=== PATIENT | female | born 1970 | race Caucasian/White ===

== ENCOUNTER → 2016-10-18 | Outpatient (CLI) | payer BC ==
[2016-10-18 17:10] LABS: CHLORIDE,CL 100 mmol/L (98-110); SODIUM,NA 137 mmol/L (136-146)
== END ==
LOC: MW.CHNEURO 16:25
PROVIDERS: ATTEND Psychiatry & Neurology Neuromuscular Medicine
DX: R11.2 Nausea with vomiting, unspecified (principal); R10.9 Unspecified abdominal pain
CPT/HCPCS: 36415; 80053; 82150; 83690; 85025

== ENCOUNTER 2018-04-08 10:11 | Day surgery (SDC) | payer BC ==
[~2018-04-08 10:11] MED LIST: Lactated Ringers 1,000 ML IV SCH; Sodium Chloride 0.9% 10 ML Syringe FLUSH PRN; Sodium Chloride 0.9% 2.5 ML Syringe FLUSH PRN
--- NOTE | 2018-04-08 11:29 | PCM.PREANE ---
Preanesthetic Assessment - Procedure Proposed Procedure: EGD and Colonoscopy - Anesthesia/Transfusion/Family Hx Anesthesia History: Prior Anesthesia Without Reaction Family History of Anesthesia Reaction: No Transfusion History: No Prior Transfusion(s) Intubation History: Unknown - Review of Systems General: Fatigue Pulmonary: No Symptoms Cardiovascular: Other (HTN) Gastrointestinal: No Symptoms Neurological: Headache (Tx with propranolol) Other: Reports: None - Physical Assessment NPO Status Date: 04/07/18 NPO Status Time: 22:00 Height: 5 ft 2 in Weight: 146 lb ASA Class: 2 Mental Status: Alert & Oriented x3 Airway Class: Mallampati = 1 Dentition: Reports: Normal Dentition Thyro-Mental Finger Breadths: 3 Mouth Opening Finger Breadths: 3 ROM/Head Extension: Limited/Partial Lungs: Clear to Auscultation, Normal Respiratory Effort Cardiovascular: Regular Rate, Regular Rhythm - Allergies Allergies/Adverse Reactions: Allergies Allergy/AdvReac Type Severity Reaction Status Date / Time aspirin Allergy Shortness Verified 04/01/18 13:32 of Breath - Blood Blood Available: No - Anesthesia Plan Pre-Op Medication Ordered: None - Acknowledgements Anesthesia Type Planned: MAC Pt an Appropriate Candidate for the Planned Anesthesia: Yes Alternatives and Risks of Anesthesia Discussed w Pt/Guardian: Yes Pt/Guardian Understands and Agrees with Anesthesia Plan: Yes PreAnesthesia Questionnaire HEENT History: Reports: None Cardiovascular History: Reports: Hypertension Genitourinary History: Reports: None Musculoskeletal History: Reports: Fracture Other Musculoskeletal History: hx of fx elbow and ankle Neurological History: Reports: Migraines, Seizure Other Neuro History: seizures as a child Endocrine/Metabolic History: Reports: Other (See Below) Other Endocrine/Metabolic History: hx thyroid nodule Hematologic History: Reports: Iron Deficiency Other Hematologic History: Fe deficiency anemia - Past Surgical History Head Surgeries/Procedures: Reports: None HEENT Surgical History: Reports: Tonsillectomy Female Surgical History: Reports: Tubal Ligation - SUBSTANCE USE Smoking Status *Q: Never Smoker Recreational Drug Use History: No - HOME MEDS Home Medications: Home Meds Divalproex Sodium 2 tab PO BEDTIME 04/01/18 [History] EPINEPHrine [Epipen] 1 injection SUBCUT ASDIRECTED PRN 04/01/18 [History] Ferrous Sulfate [Iron] 325 mg PO BID 04/01/18 [History] Losartan Potassium 100 mg PO DAILY 04/01/18 [History] Ondansetron [Ondansetron ODT] 8 mg SL ASDIRECTED PRN 04/01/18 [History] Propranolol HCl [Propranolol HCl ER] 120 mg PO DAILY 04/01/18 [History] Rizatriptan Benzoate [Rizatriptan] 10 mg PO ASDIRECTED PRN 04/01/18 [History] hydroCHLOROthiazide [Hydrochlorothiazide] 25 mg PO DAILY 04/01/18 [History] valACYclovir HCl [valACYclovir] 1 tab PO ASDIRECTED PRN 04/01/18 [History] Cyclobenzaprine HCl 0.5 - 1 tab PO ASDIRECTED PRN 04/02/18 [History] - CURRENT (IN HOUSE) MEDS Current Meds: Current Medications Lactated Ringer's (Ringers, Lactated) 1,000 mls @ 125 mls/hr IV ASDIRECTED QASIM Sodium Chloride (Saline Flush) 10 ml FLUSH ASDIRECTED PRN PRN Reason: Keep Vein Open Sodium Chloride (Saline Flush) 2.5 ml FLUSH ASDIRECTED PRN PRN Reason: Keep Vein Open Sodium Chloride (Saline Flush) 10 ml FLUSH ASDIRECTED PRN PRN Reason: Keep Vein Open Sodium Chloride (Saline Flush) 2.5 ml FLUSH ASDIRECTED PRN PRN Reason: Keep Vein Open
[2018-04-08] MEDS ORDERED: fentaNYL 100 MCG/2 ML SDV ONE (12:14)
[2018-04-08] MEDS ORDERED: Lidocaine 2% 5 ML SDV ONE (12:14)
[2018-04-08] MEDS ORDERED: Propofol 200 MG/20 ML SDV ONE (12:14)
[2018-04-08] MEDS ORDERED: Midazolam 1 MG/ML 2 ML SDV ONE (12:14)
--- NOTE | 2018-04-08 12:58 | PCM.OPNOTE ---
- General Post-Op/Procedure Note Date of Surgery/Procedure: 04/08/18 Operative Procedure(s): Diagnostic EGD and colonoscopy Findings: Gastric ulcer in antrum along greater curvature Pre Op Diagnosis: Iron deficiency anemia Post-Op Diagnosis: gastric ulcer, normal colon Anesthesia Technique: MAC Primary Surgeon: Makayla Costa Condition: Good
--- NOTE | 2018-04-08 13:03 | PCM.POSTAN ---
POST ANESTHESIA ASSESSMENT - MENTAL STATUS Mental Status: Alert, Oriented - RESPIRATORY Respiratory Status: Respiratory Rate WNL, Airway Patent, O2 Saturation Stable - CARDIOVASCULAR CV Status: Pulse Rate WNL, Blood Pressure Stable - GASTROINTESTINAL GI Status: No Symptoms - POST OP HYDRATION Hydration Status: Adequate & Stable
[2018-04-08 13:12] VITALS: BP 96/58
--- NOTE | 2018-04-08 13:30 | OR ---
SURGEON: NESS POWELL MD DATE OF PROCEDURE: 04/08/2018 PREOPERATIVE DIAGNOSIS: Iron-deficiency anemia. POSTOPERATIVE DIAGNOSIS: Gastric ulcer. PROCEDURES PERFORMED: Diagnostic esophagogastroduodenoscopy and colonoscopy. ANESTHESIA: MAC. INSTRUMENT USED: Olympus endoscope and colonoscope. EXTENT OF EXAM: To the second portion of duodenum, to the cecum. PREPARATION: Good. LIMITATIONS: None. INDICATION FOR EXAMINATION: The patient is a 48-year-old female, who presents with chronic iron-deficiency anemia. A decision was made to proceed with a diagnostic EGD and colonoscopy. I explained the procedure, expected perioperative course, and risks including bleeding infection and/or perforation or damage to surrounding structures. The patient verbalized understanding and wishes to proceed. PROCEDURE IN DETAIL: The patient was brought to the endoscopy suite and placed in a beach chair position. A time-out was completed verifying the patient's name, age, date of , allergies, and procedure to be performed. Monitored anesthesia care was induced and a bite block was placed in the patient's mouth. Continuous oxygen was provided via nasal cannula throughout the procedure. After adequate sedation was achieved, a well lubricated endoscope was placed in the patient's mouth and advanced under direct visualization to the second portion of duodenum. This appeared normal and a photograph was taken. The scope was then fully withdrawn while examining the color, texture, anatomy, and integrity of mucosa of the upper GI tract. The duodenal mucosa was free of pathology. The scope was brought into the stomach and a photograph was taken of the pylorus as well as the GE junction. Both appeared normal. On inspection of the gastric mucosa, the patient was noted to have a broad based ulcer along the greater curvature in the antrum. This had a clot on the top of it and there were no stigmata of recent bleeding. A photograph was taken of this ulcer. A biopsy was taken next to it and sent to pathology for histologic review and H. pylori testing. Biopsies were then taken of the gastric body and fundus as well and sent for similar review. The scope was brought into the distal esophagus. A photograph was taken of the Z-line in the distal esophagus, which grossly appeared normal. A biopsy was taken of the esophageal mucosa and sent for histologic review. The remainder of the esophagus appeared normal. The scope was removed and this portion of procedure was terminated. The patient was placed in the left lateral decubitus position. A digital rectal exam was performed. This exam was within normal limits. A well lubricated colonoscope was inserted into the rectum and advanced under direct visualization to the level of the cecum. The cecum was identified by both visual and anatomic landmarks. A photograph was taken of the cecal cap as well as with the scope retroflexed within the cecum. The scope was then fully withdrawn while examining the color, texture, anatomy, and integrity of the mucosa from the cecum to the anal canal. The findings were consistent with normal colonic mucosa. The scope was then brought into the rectum and retroflexed to allow visualization of the anal canal opening. This appeared normal and a photograph was taken. The scope was then straightened out and fully withdrawn. The cecum to anus time was 6 minutes. The patient tolerated the procedure well and was transferred to the PACU in stable condition. ENDOSCOPIC DIAGNOSIS: Gastric ulcer. RECOMMENDATIONS: We will start the patient on 40 mg of pantoprazole daily as well as sucralfate 1 g q.i.d. The patient should follow up in clinic in 2 weeks. SAMEER VILLA /[id number]
--- NOTE | 2018-04-08 14:23 | PCM48HPAN ---
Post Anesthesia Note - EVALUATION WITHIN 48HRS OF ANESTHETIC Vital Signs in Normal Range: Yes Patient Participated in Evaluation: Yes Respiratory Function Stable: Yes Airway Patent: Yes Cardiovascular Function Stable: Yes Hydration Status Stable: Yes Pain Control Satisfactory: Yes Nausea and Vomiting Control Satisfactory: Yes Mental Status Recovered: Yes Resp Rate: 14
== END 2018-04-08 13:25 | disposition home or self-care (01) ==
LOC: MW.SDS 10:11
PROVIDERS: ATTEND Surgery
DX: D50.8 Other iron deficiency anemias (principal); K29.30 Chronic superficial gastritis without bleeding; I10 Essential (primary) hypertension; J32.0 Chronic maxillary sinusitis; J30.9 Allergic rhinitis, unspecified; E04.1 Nontoxic single thyroid nodule; Z88.6 Allergy status to analgesic agent; Z79.899 Other long term (current) drug therapy
CPT/HCPCS: 43239; 45378; 81025; J2250; J2704; J3010; J7120

== ENCOUNTER 2018-10-02 07:05 | Day surgery (SDC) | payer BC ==
[2018-10-01 12:49] LABS: CHLORIDE,CL 101 mmol/L (98-107); SODIUM,NA 137 mmol/L (136-145)
[~2018-10-02 07:05] MED LIST changes: +ceFAZolin 2 GM in Premix Bag 1 BAG IV ONE
[2018-10-02] MEDS ORDERED: Fluorescein 5 ML Vial ONE (07:55)
[2018-10-02] MEDS ORDERED: Scopolamine 1.5 MG Transdermal Patch TOP ONE (08:58)
[2018-10-02] MEDS ORDERED: Midazolam 1 MG/ML 2 ML SDV IVPUSH ONE (08:58)
--- NOTE | 2018-10-02 09:04 | PCM.PREANE ---
Preanesthetic Assessment - Anesthesia/Transfusion/Family Hx Anesthesia History: Prior Anesthesia Without Reaction Family History of Anesthesia Reaction: No Transfusion History: No Prior Transfusion(s) Intubation History: Unknown - Review of Systems General: No Symptoms Pulmonary: No Symptoms Cardiovascular: No Symptoms Gastrointestinal: No Symptoms Neurological: No Symptoms Other: Reports: None - Physical Assessment NPO Status Date: 10/02/18 NPO Status Time: 06:00 O2 Sat by Pulse Oximetry: 96 Respiratory Rate: 20 Vital Signs: Last Vital Signs Temp 97.7 F 10/02/18 08:15 Pulse 82 10/02/18 08:15 Resp 20 10/02/18 08:15 BP 135/87 10/02/18 08:15 Pulse Ox 96 10/02/18 08:15 Height: 5 ft 2 in Weight: 66.224 kg ASA Class: 5E Emergency Airway Class: Mallampati = 2 Dentition: Reports: Normal Dentition Thyro-Mental Finger Breadths: 3 Mouth Opening Finger Breadths: 3 ROM/Head Extension: Full Lungs: Clear to Auscultation, Normal Respiratory Effort Cardiovascular: Regular Rate, Regular Rhythm - Lab Values: Laboratory Last Values WBC 6.36 K/uL (4.0-11.0) 10/01/18 11:42 RBC 4.61 M/uL (4.30-5.90) 10/01/18 11:42 Hgb 13.1 g/dL (12.0-16.0) 10/01/18 11:42 Hct 38.0 % (36.0-46.0) 10/01/18 11:42 MCV 82.4 fL (80.0-98.0) 10/01/18 11:42 MCH 28.4 pg (27.0-32.0) 10/01/18 11:42 MCHC 34.5 g/dL (31.0-37.0) 10/01/18 11:42 RDW Std Deviation 45.0 fl (28.0-62.0) 10/01/18 11:42 RDW Coeff of [place] 15 % (11.0-15.0) 10/01/18 11:42 Plt Count 206 K/uL (150-400) 10/01/18 11:42 MPV 9.80 fL (7.40-12.00) 10/01/18 11:42 Nucleated RBC % 0.0 /100WBC 10/01/18 11:42 Nucleated RBCs # 0 K/uL 10/01/18 11:42 Sodium 137 mmol/L (136-145) 10/01/18 11:42 Potassium 3.8 mmol/L (3.5-5.1) 10/01/18 11:42 Chloride 101 mmol/L (98-107) 10/01/18 11:42 Carbon Dioxide 27.1 mmol/L (21.0-32.0) 10/01/18 11:42 BUN 11 mg/dL (7.0-18.0) 10/01/18 11:42 Creatinine 0.8 mg/dL (0.6-1.0) 10/01/18 11:42 Est Cr Clr Drug Dosing 69.50 mL/min 10/01/18 11:42 Estimated GFR (MDRD) > 60.0 ml/min 10/01/18 11:42 Glucose 89 mg/dL (74-106) 10/01/18 11:42 Calcium 8.7 mg/dL (8.5-10.1) 10/01/18 11:42 HCG, Qual NEGATIVE (NEG) 10/01/18 11:42 Blood Type A POSITIVE 10/01/18 11:42 Antibody Screen NEGATIVE 10/01/18 11:42 - Allergies Allergies/Adverse Reactions: Allergies Allergy/AdvReac Type Severity Reaction Status Date / Time aspirin Allergy Anaphylactic Verified 09/29/18 15:35 Shock laminaria Allergy hemorrage Uncoded 10/01/18 12:36 - Anesthesia Plan Free Text/Narrative:: Patients states 3 years ago she had an 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 She has not had any further occurrences since that time. - Acknowledgements Anesthesia Type Planned: General Anesthesia Pt an Appropriate Candidate for the Planned Anesthesia: Yes Alternatives and Risks of Anesthesia Discussed w Pt/Guardian: Yes Pt/Guardian Understands and Agrees with Anesthesia Plan: Yes PreAnesthesia Questionnaire HEENT History: Reports: None Cardiovascular History: Reports: Hypertension Respiratory History: Reports: None Gastrointestinal History: Reports: GERD Other Gastrointestinal History: bleeding ulcer Genitourinary History: Reports: None [employer] History: Reports: Musculoskeletal History: Reports: Fracture Other Musculoskeletal History: hx of fx elbow and ankle Neurological History: Reports: Migraines, Seizure (Epilepsy as a child - has not had a seizure or taken medication in 35 years) Other Neuro History: seizures as a child Psychiatric History: Reports: None Endocrine/Metabolic History: Reports: Other (See Below) Other Endocrine/Metabolic History: hx thyroid nodule - benign to patients knowledge Hematologic History: Reports: Iron Deficiency Other Hematologic History: Fe deficiency anemia Immunologic History: Reports: None Oncologic (Cancer) History: Reports: None Dermatologic History: Reports: None - Infectious Disease History Infectious Disease History: Reports: None - Past Surgical History Head Surgeries/Procedures: Reports: None HEENT Surgical History: Reports: Tonsillectomy Respiratory Surgical History: Reports: None GI Surgical History: Reports: Colonoscopy, EGD Female Surgical History: Reports: Tubal Ligation Oncologic Surgical History: Reports: None - SUBSTANCE USE Smoking Status *Q: Never Smoker Recreational Drug Use History: No - HOME MEDS Home Medications: Home Meds EPINEPHrine [Epipen] 1 injection SUBCUT ASDIRECTED PRN 04/01/18 [History] Ferrous Sulfate [Iron] 325 mg PO BID 04/01/18 [History] Losartan Potassium 100 mg PO DAILY 04/01/18 [History] Propranolol HCl [Propranolol HCl ER] 120 mg PO DAILY 04/01/18 [History] hydroCHLOROthiazide [Hydrochlorothiazide] 25 mg PO DAILY 04/01/18 [History] valACYclovir HCl [valACYclovir] 1 tab PO ASDIRECTED PRN 04/01/18 [History] Cyclobenzaprine HCl 0.5 - 1 tab PO ASDIRECTED PRN 04/02/18 [History] Pantoprazole Sodium 40 mg PO DAILY #30 tablet. 04/08/18 [Rx] Divalproex Sodium 1 tab PO QAM 07/02/18 [History] Maxalt 1 tab PO ASDIRECTED PRN 07/02/18 [History] Triamcinolone Acetonide [Triamcinolone Acetonide 0.1% Crm] 1 applic TOP ASDIRECTED PRN 07/02/18 [History] Erenumab-Aooe [Aimovig Autoinjector] 1 injection IM ASDIRECTED 09/29/18 [History ] Ondansetron [Zofran] 4 mg PO ASDIRECTED PRN 09/29/18 [History] - CURRENT (IN HOUSE) MEDS Current Meds: Current Medications Lactated Ringer's (Ringers, Lactated) 1,000 mls @ 500 mls/hr IV BOLUS QASIM Last Admin: 10/02/18 08:25 Dose: 500 mls/hr Midazolam HCl (Versed 1 Mg/Ml) 2 mg IVPUSH ONETIME ONE Stop: 10/02/18 08:59 Scopolamine (Transderm-Scop) 1.5 mg TOP ONETIME ONE Stop: 10/02/18 08:59 Sodium Chloride (Saline Flush) 10 ml FLUSH ASDIRECTED PRN PRN Reason: Keep Vein Open Sodium Chloride (Saline Flush) 2.5 ml FLUSH ASDIRECTED PRN PRN Reason: Keep Vein Open Discontinued Medications Fluorescein Sodium (Ak-Fluor) Confirm Administered Dose 5 ml .ROUTE .STK-MED ONE Stop: 10/02/18 07:56 Cefazolin Sodium/Dextrose 2 gm (/ Premix) 50 mls @ 100 mls/hr IV ONETIME ONE Stop: 10/01/18 09:17
[2018-10-02] MEDS ORDERED: Midazolam 1 MG/ML 2 ML SDV ONE (09:33)
[2018-10-02] MEDS ORDERED: fentaNYL 100 MCG/2 ML SDV ONE ×2 (09:33→10:12)
[2018-10-02] MEDS ORDERED: Lidocaine 2% 5 ML SDV ONE (09:33)
[2018-10-02] MEDS ORDERED: Rocuronium 10 MG/ML 10 ML Syringe ONE (09:34)
[2018-10-02] MEDS ORDERED: Propofol 200 MG/20 ML SDV ONE (09:34)
[2018-10-02] MEDS ORDERED: Glycopyrrolate 0.2 MG/ML SDV ONE ×3 (10:41→10:53)
[2018-10-02] MEDS ORDERED: Ondansetron 4 MG/2 ML SDV ONE (10:42)
[2018-10-02] MEDS ORDERED: Neostigmine Methylsulfate 1 MG/ML 5 ML Syringe ONE (10:53)
[2018-10-02] MEDS ORDERED: Ondansetron 4 MG/2 ML SDV IVPUSH PRN (10:59)
[2018-10-02] MEDS ORDERED: Morphine 4 MG/ML Syringe IVPUSH PRN (10:59)
[2018-10-02] MEDS ORDERED: Acetaminophen/oxyCODONE 325-5 MG Tab PO PRN (10:59)
[2018-10-02] MEDS ORDERED: Ketorolac 30 MG/ML SDV IVPUSH ONE (10:59)
[2018-10-02] MEDS ORDERED: Promethazine 25 MG/ML SDV IM PRN (10:59)
--- NOTE | 2018-10-02 11:06 | PCM.OPNOTE ---
- General Post-Op/Procedure Note Date of Surgery/Procedure: 10/02/18 Operative Procedure(s): TVH BSO and cysto Pre Op Diagnosis: Bleeding Post-Op Diagnosis: Same Anesthesia Technique: General ET Tube, General Mask Primary Surgeon: Kadeem Garcia EBL in mLs: 150 Complications: None Condition: Good
[2018-10-02] MEDS ORDERED: HYDROmorphone 2 MG/ML Syringe ONE (12:07)
[2018-10-02] MEDS ORDERED: fentaNYL 100 MCG/2 ML SDV IVPUSH PRN (12:08)
[2018-10-02] MEDS ORDERED: HYDROmorphone 2 MG/ML Syringe IVPUSH ONE (12:08)
--- NOTE | 2018-10-02 13:44 | OR ---
SURGEON: Kadeem Garcia MD DATE OF PROCEDURE: 10/02/2018 PREOPERATIVE DIAGNOSES: 1. Menometrorrhagia. 2. Thickening endometrium. POSTOPERATIVE DIAGNOSES: 1. Menometrorrhagia. 2. Thickening endometrium. OPERATIONS PERFORMED: Total vaginal hysterectomy, vaginal bilateral salpingo-oophorectomy, and cystoscopy. CONSTRUCTION DRILLER: OR tech. ANESTHESIA: General endotracheal intubation. ANESTHESIOLOGIST: Dr. Way. ESTIMATED BLOOD LOSS: 150 mL. COMPLICATIONS: None. FINDINGS: A uterus is about 10 to 11 week size with a small fibroid, thickening endometrium, and frozen section on the endometrium shows adenomatous hyperplasia without atypia. PROCEDURE IN DETAIL: The patient was brought to the OR, properly identified, and after adequate level of anesthesia, the patient was placed in lithotomy position, prepped and draped in sterile fashion as usual. Straight catheter was used to empty the bladder, and then short weighted speculum was placed in the vagina using electrocautery. Circular incision in the vaginal mucosa around the cervix was done and then the posterior cul-de-sac was entered posteriorly in the peritoneum, and the vagina tacked posteriorly. The uterosacral ligament was clamped with a curved Zeppelin, transected, and suture ligated with 2-0 Vicryl pop-off from both sides. The same thing was done with cardinal ligament, and then the cervical vesicle space was entered retracting the bladder completely away from the operative field, then anterior peritoneum was entered. The broad ligament was clamped with a curved Zeppelin from both sides, transected, and suture ligated with 2-0 Vicryl pop-off. The uterine vessel was suture ligated at this step. Next, the round ligament was clamped with a curved Zeppelin, transected, and suture ligated with 2-0 Vicryl pop-off. The uterus delivered posteriorly, and the superior pedicle was taken from both side with a 90 degree zeppelin. The tubes and ovaries on both sides included with the specimen. The superior pedicle tied within the loop first and then free tied on both sides and held for further identification. Inspection of the entire operative field shows no oozing, no bleeding. We sent the uterus at this time for frozen section and later on the report, this came hyperplasia without atypia. I proceeded to close the vaginal cuff with 2-0 Vicryl interrupted [id number] sutures. While we were doing that, we asked Anesthesia to give the patient fluorescein and cystoscopy was performed. The bladder was intact. Both ureteric orifices were seen with the dye coming from both of them. Thus, the patency of both ureters verified and satisfied with these findings. The cystoscope was withdrawn and the procedure was ended. The instrument and sponge counts were correct. The patient tolerated the procedure well, went to recovery room in stable general condition. UMM VILLA /[id number]
[2018-10-02] MEDS: Ketorolac 30 MG/ML SDV IVPUSH PRN (21:45)
[2018-10-03] MEDS: Ketorolac 30 MG/ML SDV IVPUSH PRN (04:12)
[2018-10-03] MEDS: Acetaminophen/oxyCODONE 325-5 MG Tab PO PRN ×2 (06:47→10:51)
--- NOTE | 2018-10-03 07:31 | PCM48HPAN ---
Post Anesthesia Note - EVALUATION WITHIN 48HRS OF ANESTHETIC Vital Signs in Normal Range: Yes Patient Participated in Evaluation: Yes Respiratory Function Stable: Yes Airway Patent: Yes Cardiovascular Function Stable: Yes Hydration Status Stable: Yes Pain Control Satisfactory: Yes Nausea and Vomiting Control Satisfactory: Yes Mental Status Recovered: Yes Resp Rate: 16
[2018-10-03 07:36] VITALS: BP 101/64
--- NOTE | 2018-10-03 09:10 | PCM.SURGPN ---
- General Info Date of Service: 10/03/18 POD#: 1 Functional Status: Reports: Pain Controlled - Review of Systems General: Reports: No Symptoms HEENT: Reports: No Symptoms Pulmonary: Reports: No Symptoms Cardiovascular: Reports: No Symptoms Gastrointestinal: Reports: No Symptoms Genitourinary: Reports: No Symptoms Musculoskeletal: Reports: No Symptoms Skin: Reports: No Symptoms Neurological: Reports: No Symptoms Psychiatric: Reports: No Symptoms - Patient Data Vitals - Most Recent: Last Vital Signs Temp 36.4 C 10/03/18 07:00 Pulse 60 10/03/18 07:00 Resp 16 10/03/18 07:30 BP 101/64 10/03/18 07:00 Pulse Ox 93 L 10/03/18 07:00 Weight - Most Recent: 66.224 kg I&O - Last 24 Hours: Intake & Output 10/02/18 10/03/18 10/03/18 22:59 06:59 14:59 Intake Total 300 700 Output Total 400 Balance 300 300 Lab Results Last 24 Hrs: Laboratory Results - last 24 hr 10/03/18 10/03/18 Range/Units 05:00 05:00 WBC 8.70 (4.0-11.0) K/uL RBC 3.79 L (4.30-5.90) M/uL Hgb 10.6 L (12.0-16.0) g/dL Hct 31.8 L (36.0-46.0) % MCV 83.9 (80.0-98.0) fL MCH 28.0 (27.0-32.0) pg MCHC 33.3 (31.0-37.0) g/dL RDW Std Deviation 46.3 (28.0-62.0) fl RDW Coeff of Tyron 15 (11.0-15.0) % Plt Count 157 (150-400) K/uL MPV 9.70 (7.40-12.00) fL Neut % (Auto) 61.2 (48.0-80.0) % Lymph % (Auto) 25.7 (16.0-40.0) % Edwards % (Auto) 12.0 (0.0-15.0) % Eos % (Auto) 0.8 (0.0-7.0) % Baso % (Auto) 0.3 (0.0-1.5) % Neut # (Auto) 5.3 (1.4-5.7) K/uL Lymph # (Auto) 2.2 (0.6-2.4) K/uL Edwards # (Auto) 1.0 H (0.0-0.8) K/uL Eos # (Auto) 0.1 (0.0-0.7) K/uL Baso # (Auto) 0.0 (0.0-0.1) K/uL Nucleated RBC % 0.0 /100WBC Nucleated RBCs # 0 K/uL Sodium 136 (136-145) mmol/L Potassium 3.4 L (3.5-5.1) mmol/L Chloride 103 (98-107) mmol/L Carbon Dioxide 27.7 (21.0-32.0) mmol/L BUN 9 (7.0-18.0) mg/dL Creatinine 1.0 (0.6-1.0) mg/dL Est Cr Clr Drug Dosing 55.60 mL/min Estimated GFR (MDRD) 59.7 ml/min Glucose 89 (74-106) mg/dL Calcium 7.4 L (8.5-10.1) mg/dL Med Orders - Current: Current Medications Fentanyl (Sublimaze) 50 - 100 mcg IVPUSH Q5M PRN PRN Reason: Pain (severe 7-10) Lactated Ringer's (Ringers, Lactated) 1,000 mls @ 500 mls/hr IV BOLUS QASIM Last Admin: 10/02/18 08:25 Dose: 500 mls/hr Ketorolac Tromethamine (Toradol) 30 mg IVPUSH Q6H PRN PRN Reason: Pain (severe 7-10) Stop: 10/07/18 10:59 Last Admin: 10/03/18 04:12 Dose: 30 mg Morphine Sulfate (Morphine Sulfate) 4 mg IV Q2H PRN PRN Reason: Pain (severe 7-10) Last Admin: 10/02/18 14:03 Dose: 4 mg Ondansetron HCl (Zofran) 4 mg IVPUSH Q6H PRN PRN Reason: Nausea/Vomiting Oxycodone/Acetaminophen (Percocet 325-5 Mg) 1 tab PO Q4H PRN PRN Reason: Pain (moderate 4-6) Last Admin: 10/03/18 06:47 Dose: 1 tab Oxycodone/Acetaminophen (Percocet 325-5 Mg) 2 tab PO Q4H PRN PRN Reason: Pain (moderate 4-6) Last Admin: 10/02/18 18:26 Dose: 2 tab Promethazine HCl (Phenergan) 25 mg IM Q6H PRN PRN Reason: Nausea/Vomiting Sodium Chloride (Saline Flush) 10 ml FLUSH ASDIRECTED PRN PRN Reason: Keep Vein Open Sodium Chloride (Saline Flush) 2.5 ml FLUSH ASDIRECTED PRN PRN Reason: Keep Vein Open Discontinued Medications Fentanyl (Sublimaze) Confirm Administered Dose 100 mcg .ROUTE .STK-MED ONE Stop: 10/02/18 09:34 Fentanyl (Sublimaze) Confirm Administered Dose 100 mcg .ROUTE .STK-MED ONE Stop: 10/02/18 10:13 Fluorescein Sodium (Ak-Fluor) Confirm Administered Dose 5 ml .ROUTE .STK-MED ONE Stop: 10/02/18 07:56 Glycopyrrolate (Robinul) Confirm Administered Dose 0.4 mg .ROUTE .STK-MED ONE Stop: 10/02/18 10:42 Glycopyrrolate (Robinul) Confirm Administered Dose 0.2 mg .ROUTE .STK-MED ONE Stop: 10/02/18 10:54 Glycopyrrolate (Robinul) Confirm Administered Dose 1 mg .ROUTE .STK-MED ONE Stop: 10/02/18 10:54 Hydromorphone HCl (Dilaudid) 2 mg IVPUSH ONETIME ONE Stop: 10/02/18 12:09 Last Admin: 10/02/18 13:31 Dose: Not Given Hydromorphone HCl (Dilaudid) Confirm Administered Dose 2 mg .ROUTE .STK-MED ONE Stop: 10/02/18 12:08 Last Admin: 10/02/18 13:31 Dose: Not Given Cefazolin Sodium/Dextrose 2 gm (/ Premix) 50 mls @ 100 mls/hr IV ONETIME ONE Stop: 10/01/18 09:17 Last Admin: 10/02/18 15:20 Dose: Not Given Ketorolac Tromethamine (Toradol) 30 mg IVPUSH ONETIME ONE Stop: 10/02/18 11:00 Last Admin: 10/02/18 13:30 Dose: Not Given Lidocaine (Xylocaine-Mpf 2%) Confirm Administered Dose 5 ml .ROUTE .STK-MED ONE Stop: 10/02/18 09:34 Midazolam HCl (Versed 1 Mg/Ml) 2 mg IVPUSH ONETIME ONE Stop: 10/02/18 08:59 Last Admin: 10/02/18 09:08 Dose: 2 mg Midazolam HCl (Versed 1 Mg/Ml) Confirm Administered Dose 2 mg .ROUTE .STK-MED ONE Stop: 10/02/18 09:34 Morphine Sulfate (Morphine) 4 mg IVPUSH Q2H PRN PRN Reason: Pain (severe 7-10) Neostigmine Methylsulfate (Neostigmine) Confirm Administered Dose 5 mg .ROUTE .STK-MED ONE Stop: 10/02/18 10:54 Ondansetron HCl (Zofran) Confirm Administered Dose 8 mg .ROUTE .STK-MED ONE Stop: 10/02/18 10:43 Propofol (Diprivan 20 Ml) Confirm Administered Dose 200 mg .ROUTE .STK-MED ONE Stop: 10/02/18 09:35 Rocuronium [place] (Zemuron) Confirm Administered Dose 100 mg .ROUTE .STK-MED ONE Stop: 10/02/18 09:35 Scopolamine (Transderm-Scop) 1.5 mg TOP ONETIME ONE Stop: 10/02/18 08:59 Last Admin: 10/02/18 09:06 Dose: 1.5 mg - Exam Wound/Incisions: Healing Well General: Alert, Oriented HEENT: Pupils Equal Neck: Supple Lungs: Clear to Auscultation, Normal Respiratory Effort Cardiovascular: Regular Rate, Regular Rhythm GI/Abdominal Exam: Normal Bowel Sounds, Soft, Non-Tender, No Organomegaly, No Distention, No Abnormal Bruit, No Mass, Pelvis Stable Extremities: Normal Inspection, Normal Range of Motion, Non-Tender, No Pedal Edema, Normal Capillary Refill Skin: Warm, Dry, Intact Neurological: No New Focal Deficit Psy/Mental Status: Alert, Normal Affect, Normal Mood - Problem List Review Problem List Initiated/Reviewed/Updated: Yes - My Orders Last 24 Hours: Active Orders 24 hr Category Date Time Status Patient Status [ADT] Routine ADT 10/02/18 10:59 Active Antiembolic Devices [RC] PER UNIT ROUTINE Care 10/02/18 11:01 Active Notify Provider Vital Signs [RC] ASDIRECTED Care 10/02/18 10:59 Active Oxygen Therapy [RC] ASDIRECTED Care 10/02/18 10:59 Active RT Incentive Spirometry [RC] Q2HWA Care 10/02/18 10:59 Active Up With Assistance [RC] PER UNIT ROUTINE Care 10/02/18 10:59 Active Up ad Danii [RC] PER UNIT ROUTINE Care 10/02/18 10:59 Active Vital Signs [RC] Q4H Care 10/02/18 10:59 Active Regular Diet [DIET] Diet 10/02/18 Dinner Active Acetaminophen/oxyCODONE [Percocet 325-5 MG] Med 10/02/18 10:59 Active 1 tab PO Q4H PRN Acetaminophen/oxyCODONE [Percocet 325-5 MG] Med 10/02/18 10:59 Active 2 tab PO Q4H PRN Ketorolac [Toradol] Med 10/02/18 10:59 Active 30 mg IVPUSH Q6H PRN Morphine Sulfate Med 10/02/18 14:00 Active 4 mg IV Q2H PRN Ondansetron [Zofran] Med 10/02/18 10:59 Active 4 mg IVPUSH Q6H PRN Promethazine [Phenergan] Med 10/02/18 10:59 Active 25 mg IM Q6H PRN fentaNYL [Sublimaze] Med 10/02/18 12:08 Active 50 - 100 mcg IVPUSH Q5M PRN Peripheral IV Discontinue [OM.PC] Routine Oth 10/02/18 10:59 Ordered Sequential Compression Device [OM.PC] Per Unit Routine Oth 10/02/18 10:59 Ordered Resuscitation Status Routine Resus Stat 10/02/18 10:59 Ordered Medication Orders Fentanyl (Sublimaze) 50 - 100 mcg IVPUSH Q5M PRN PRN Reason: Pain (severe 7-10) Lactated Ringer's (Ringers, Lactated) 1,000 mls @ 500 mls/hr IV BOLUS QASIM Last Admin: 10/02/18 08:25 Dose: 500 mls/hr Ketorolac Tromethamine (Toradol) 30 mg IVPUSH Q6H PRN PRN Reason: Pain (severe 7-10) Stop: 10/07/18 10:59 Last Admin: 10/03/18 04:12 Dose: 30 mg Admin: 10/02/18 21:45 Dose: 30 mg Morphine Sulfate (Morphine Sulfate) 4 mg IV Q2H PRN PRN Reason: Pain (severe 7-10) Last Admin: 10/02/18 14:03 Dose: 4 mg Ondansetron HCl (Zofran) 4 mg IVPUSH Q6H PRN PRN Reason: Nausea/Vomiting Oxycodone/Acetaminophen (Percocet 325-5 Mg) 1 tab PO Q4H PRN PRN Reason: Pain (moderate 4-6) Last Admin: 10/03/18 06:47 Dose: 1 tab Oxycodone/Acetaminophen (Percocet 325-5 Mg) 2 tab PO Q4H PRN PRN Reason: Pain (moderate 4-6) Last Admin: 10/02/18 18:26 Dose: 2 tab Promethazine HCl (Phenergan) 25 mg IM Q6H PRN PRN Reason: Nausea/Vomiting Sodium Chloride (Saline Flush) 10 ml FLUSH ASDIRECTED PRN PRN Reason: Keep Vein Open Sodium Chloride (Saline Flush) 2.5 ml FLUSH ASDIRECTED PRN PRN Reason: Keep Vein Open - Assessment Assessment (Free Text/Narrative):: Status post total vaginal hysterectomy and bilateral salpingo-oophorectomy postoperative day #1 patient is doing well. Ambulatory voiding without any problem on regular diet minimum vaginal bleeding had pain is under control - Plan Plan (Free Text/Narrative):: Findings send the patient home today the postvasectomy instruction is given to the patient there is no restriction on her diet prescription for Dorothy 550 given to the patient for postoperative pain the patient is already have an appointment for postoperative checkup in the office in one week
== END 2018-10-03 11:20 | disposition home or self-care (01) ==
LOC: MW.SDS 07:05 → MW.MS 11:59 → MW.SDS 10-03 11:20
PROVIDERS: ATTEND Obstetrics & Gynecology
DX: D25.1 Intramural leiomyoma of uterus (principal); D25.2 Subserosal leiomyoma of uterus; N80.0 Endometriosis of uterus; N83.02 Follicular cyst of left ovary; N83.01 Follicular cyst of right ovary; N85.00 Endometrial hyperplasia, unspecified; I10 Essential (primary) hypertension; K21.9 Gastro-esophageal reflux disease without esophagitis; D50.9 Iron deficiency anemia, unspecified; G43.909 Migraine, unspecified, not intractable, without status migrainosus; Z88.6 Allergy status to analgesic agent; Z79.2 Long term (current) use of antibiotics; Z79.899 Other long term (current) drug therapy; Z91.048 Other nonmedicinal substance allergy status
CPT/HCPCS: 36415; 58262; 80048; 84703; 85025; 85027; 86850; 86900; 86901; A9270; J1885; J2001; J2250; J2270; J2405; J2704; J3010; J3490; J7120; 88305; 88307; 88331